=== PATIENT | male | born 1990 | race Caucasian/White ===

== ENCOUNTER 2018-11-03 18:57 | Emergency (ER) | payer OTHER ==
[~2018-11-03] VITALS: Ht 182.9 cm; Wt 128.4 kg
[2018-11-03 19:06] VITALS: BP 160/95
[2018-11-03] MEDS ORDERED: COLCHICINE 0.6 MG TABLET ONE (20:15)
[2018-11-03] MEDS ORDERED: INDOMETHACIN 50 MG CAPSULE ONE (20:15)
[2018-11-03] MEDS ORDERED: INDOMETHACIN 50 MG CAPSULE PO ONE (20:30)
[2018-11-03] MEDS ORDERED: COLCHICINE 0.6 MG TABLET PO ONE (20:30)
== END 2018-11-03 20:34 | disposition home or self-care (01) ==
LOC: ED 20:15
DX: M79.671 Pain in right foot (principal); F17.200 Nicotine dependence, unspecified, uncomplicated
CPT/HCPCS: 36415; 84550; 99284